=== PATIENT | female | born 1970 | race Caucasian/White ===

== ENCOUNTER 2020-10-22 05:30 | Inpatient (IN) | payer OTHER ==
[2020-10-22] VITALS (15 sets, daily range): BP systolic 108–148
[~2020-10-22] VITALS: Ht 175.3 cm; Wt 118.4 kg
[2020-10-22] MEDS ORDERED: POLYMYXIN 500,000/BACIT.10,000 UNITS in NS IRR 1 L IR ONE (07:10)
[2020-10-22] MEDS ORDERED: INSULIN REGULAR, HUMAN 100 UNITS/ML, 10 ML VIAL (humuLIN R) SUBCUT PRN (07:15)
[2020-10-22] MEDS ORDERED: ONDANSETRON HCL 4 MG/2 ML VIAL IVP PRN ×2 (09:45→10:15)
[2020-10-22] MEDS ORDERED: HYDROmorphone 1 MG/ML INJ. CARTRIDGE IVP PRN ×2 (09:45)
[2020-10-22] MEDS ORDERED: VANCOMYCIN HCL 1 GM/NS PREMIX 250 ML IV SCH (09:45)
[2020-10-22] MEDS ORDERED: methocarbamoL 500 MG TABLET PO PRN (09:45)
[2020-10-22] MEDS ORDERED: HYDROcodone/ACETAMIN 10-325 MG TAB PO PRN ×2 (09:45)
[2020-10-22] MEDS ORDERED: ALBUTEROL SULFATE 0.083% 2.5 MG/3 ML VIAL.NEB INH ONE ×2 (09:55→10:00)
[2020-10-22] MEDS ORDERED: LR 1,000 ML IV SCH (10:15)
[2020-10-22] MEDS ORDERED: KETOROLAC TROMETHAMINE 30 MG VIAL IVP PRN ×3 (10:15)
[2020-10-22] MEDS ORDERED: KCL 20 mEq in D5NS 1000 mL 1,000 ML IV SCH (10:30)
--- NOTE | 2020-10-22 10:40 | NUR ---
POST OP ADMISSION NOTES: PATIENT AWAKE ,ON SEMI CANDELARIO'S POSITION.ON SIMPLE MASK UPON ADMISSION. BEDSIDE REPORT GIVEN TO COLTON .S/P CERVICAL C5-7 TOTAL ARTHROPLASTY.RIGHT NECK INCISION WITH DERMA BANKS,INTACT. CONNECT TO HEART MONITOR. BILATERAL SCD'S ON LE. CONTINUE TO MONITOR.POST OP ROUTINE ORDER RENDERED.
[2020-10-22] MEDS: NACL 0.9% 1,000 ML IV SCH ×2 (12:19→21:15)
[2020-10-22] MEDS: VANCOMYCIN HCL 1 GM/NS PREMIX 250 ML IV SCH ×2 (12:25→23:47)
--- NOTE | 2020-10-22 14:40 | NUR ---
OOB: ASSISTED PATIENT TO TOILET,VOIDED. THEN BACK TO BED.STABLE.
[2020-10-22] MEDS ORDERED: MONT10TA33 PO (16:14)
[2020-10-22] MEDS ORDERED: PRO20 PO (16:14)
[2020-10-22] MEDS ORDERED: ATOR10TA68 PO (16:14)
[2020-10-22] MEDS ORDERED: ESOM40CA53 PO (16:14)
[2020-10-22] MEDS ORDERED: TRIA1TAB96 PO (16:14)
[2020-10-22] MEDS ORDERED: METF-381 PO (16:14)
[2020-10-22] MEDS ORDERED: BENA40TA8 PO (16:14)
[2020-10-22] MEDS ORDERED: IBUP-1970 PO (16:14)
[2020-10-22] MEDS: INSULIN REGULAR, HUMAN 100 UNITS/ML, 10 ML VIAL (humuLIN R) SUBCUT PRN ×2 (17:32→21:17)
--- NOTE | 2020-10-22 18:00 | NUR ---
IS: INCENTIVE SPIROMETRY RENDERED BY PATIENT UP TO 1300ML.
--- NOTE | 2020-10-22 18:54 | NUR ---
BRP WITH ASSIST: ASSISTED PATIENT TO THE TOILET WITH FRIEND IN THE ROOM.SLOWLY,PATIENT GOT UP ,WITH STEADY GAIT. VOIDED.ASSISTED BACK TO THE BED. STABLE.
[2020-10-22] MEDS: HYDROmorphone 2 MG/ML VIAL IVP PRN ×2 (19:01→23:48)
--- NOTE | 2020-10-22 19:19 | NUR ---
END OF SHIFT: ENDORSEMENT GIVEN TO GIN. PATIENT WAS GIVEN IV PAIN MEDS.COMFORTABLE THIS TIME. INFORMED NIGHT NURSE PATIENT REQUESTED IV TO BE RE SITED. FRIEND AT THE BEDSIDE. CERVICAL NECK BRACE ON. IV INTACT. CALL LIGHT WITH IN REACH. BED LOCKED AT LOWEST POSITION. NO ACUTE DISTRESS.
--- NOTE | 2020-10-22 20:04 | NUR ---
Right Hand IV d/c due to discomfort , patient awake also alert HOB elevated CERVICAL COLLER in place .
--- NOTE | 2020-10-22 20:08 | NUR ---
Right Neck incision S/P SURGERY CERVICAL NECK COLLER inplace No Bleeding noted continue to monitor .
--- NOTE | 2020-10-22 22:16 | NUR ---
BSG Blood Sugar Glucose 387 mg dl 10 UNITS of Regular INSULIN SUB Q. administer per sliding scale .
--- NOTE | 2020-10-22 23:58 | NUR ---
New IV start 20 Gauge Left Hand , patient tolerate IVF infusing as ordered .
[2020-10-23] VITALS (14 sets, daily range): BP systolic 105–140
--- NOTE | 2020-10-23 00:32 | NUR ---
ASSIST Patient out of bed for Rest Room ambulates FALL Risk measures implemented no SOB noted , monitor .
--- NOTE | 2020-10-23 02:27 | NUR ---
Patient placed on BIPAP by RT .
[2020-10-23] MEDS: INSULIN REGULAR, HUMAN 100 UNITS/ML, 10 ML VIAL (humuLIN R) SUBCUT PRN ×2 (05:49→11:45)
[2020-10-23 06:25] LABS: BASOPHILS % (AUTO) 0.2 % (0.0-2.0); EOSINOPHILS % (AUTO) 0.1 % (0.0-4.0); HEMATOCRIT 38.5 % (36-48); LYMPHOCYTES # (AUTO) 2.2 K/uL (1.0-5.5); LYMPHOCYTES % (AUTO) 10.8 % (20.5-51.5); MEAN CORPUSCULAR HEMOGLOBIN 31 pg (27-31); MEAN CORPUSCULAR HGB CONC 34 % (32-36); MEAN CORPUSCULAR VOLUME 91 fL (79.0-98.0); MONOCYTES # (AUTO) 1.3 K/uL (0.0-1.0); MONOCYTES % (AUTO) 6.3 % (1.7-9.3); NEUTROPHILS # (AUTO) 16.7 K/uL (1.8-7.7); NEUTROPHILS % (AUTO) 82.6 % (40.0-70.0); PLATELET COUNT (AUTO) 252 K/uL (130-430); RED BLOOD CELL COUNT(AUTO) 4.22 MIL/uL (4.2-6.2); WHITE BLOOD COUNT (AUTO) 20.2 K/uL (4.8-10.8)
--- NOTE | 2020-10-23 06:43 | NUR ---
ASSIST OUT OF BED AMBULATES Rest Room as needed no SOB activity tolerated skin Remains dry warm call pereira given to patient .
[2020-10-23 06:55] LABS: CALCIUM 9.1 mg/dL (8.4-11.0); CREATININE 0.88 mg/dL (0.55-1.30); POTASSIUM 3.9 mmol/L (3.5-5.1)
--- NOTE | 2020-10-23 07:15 | NUR ---
opening notes; received bedside report from endorsing night shift manager RN, patient is in bed , IVF of Normal Saline @ 100 mls/hr. no signs of acute distress noted at this time. bed locked at lowest position. fall and safety precaution in place.
[2020-10-23] MEDS: NACL 0.9% 1,000 ML IV SCH (08:00)
--- NOTE | 2020-10-23 08:16 | NUR ---
RN notes: talked to on the phone and said that patient is ready for discharge.
[2020-10-23] MEDS: HYDROmorphone 2 MG/ML VIAL IVP PRN (08:29)
--- NOTE | 2020-10-23 09:28 | NUR ---
Nutrition Update Sebastian Scale 17 noted. Pt admitted for low O2 sat post-op. Diet: CCHO, soft BMI: 38.5 kg/m2 RD to follow per nutrition care standards.
--- NOTE | 2020-10-23 09:46 | NUR ---
RN notes: change to telemetry then discharge if stable in 2 hours.
--- NOTE | 2020-10-23 10:47 | NUR ---
RN notes: Patient friend (Cori) is at bedside.
--- NOTE | 2020-10-23 12:52 | NUR ---
PAGED PAGED KEYONA CHRISTIAN AT [phone] SPOKE WITH GENE.
--- NOTE | 2020-10-23 13:34 | NUR ---
RN NOTES: DISCHARGE HOME INSTRUCTION GIVEN TO PATIENT WITH MD PRESCRIPTION AND INSTRUCTIONS.
== END 2020-10-23 16:00 | disposition home or self-care (01) | DRG 30 ==
LOC: SDS 05:30 → SMU 05:30 → SDS 10:00 → SIC 10:01
PROVIDERS: ADMIT Neurological Surgery; ATTEND Neurological Surgery
PROC: 01N10ZZ Release Cervical Nerve, Open Approach (ICD-10-PCS; 2020-10-22)
PROC: 0RU30JZ Supplement Cervical Vertebral Disc with Synthetic Substitute, Open Approach (ICD-10-PCS; 2020-10-22)
PROC: 4A11X4G Monitoring of Peripheral Nervous Electrical Activity, Intraoperative, External Approach (ICD-10-PCS; 2020-10-22)
PROC: 5A09357 Assistance with Respiratory Ventilation, Less than 24 Consecutive Hours, Continuous Positive Airway Pressure (ICD-10-PCS; 2020-10-22)
PROC: 5A09357 Assistance with Respiratory Ventilation, Less than 24 Consecutive Hours, Continuous Positive Airway Pressure (ICD-10-PCS; 2020-10-22)
PROC: 0RB30ZZ Excision of Cervical Vertebral Disc, Open Approach (ICD-10-PCS; principal; 2020-10-22 07:30)
DX: M54.12 Radiculopathy, cervical region (principal); M50.322 Other cervical disc degeneration at C5-C6 level; M50.323 Other cervical disc degeneration at C6-C7 level
CPT/HCPCS: 36415; 36600; 71045; 76001; 80048; 82803-TC; 82962; 85025; 87081; 94640; 94660; J1170; J1815; J3370; J7613